=== PATIENT | male | born 1985 | race Caucasian/White ===

== ENCOUNTER 2018-12-02 08:17 | Inpatient (IN) | payer OTHER ==
[2018-11-25 13:46] VITALS: BMI 46.6
[2018-12-02] MEDS ORDERED: MIDAZOLAM HCL 2 MG/2 ML SINGLE DOSE VIAL ONE (08:32)
--- NOTE | 2018-12-02 09:22 | HP ---
Admitting History and Physical - Admission Chief Complaint: Morbid obesity History Source: Patient Limitations to Obtaining History: No Limitations - Past Medical History Gastrointestinal: Yes: GERD - Past Surgical History Additional Past Surgical History: Gastric Fundoplication - Smoking History Smoking history: Never smoked Have you smoked in the past 12 months: No - Alcohol/Substance Use Hx Alcohol Use: Yes (SOCIAL) Home Medications - Allergies Allergies/Adverse Reactions: Allergies Allergy/AdvReac Type Severity Reaction Status Date / Time No Known Allergies Allergy Verified 12/02/18 08:35 - Home Medications Home Medications: Ambulatory Orders NK [No Known Home Medication] 11/25/18 Family Disease History - Family Disease History Family History: Denies Review of Systems - Review of Systems Constitutional: denies: Chills, Fever HENT: reports: No Symptoms Neck: reports: No Symptoms Cardiovascular: reports: No Symptoms Respiratory: reports: No Symptoms Gastrointestinal: reports: No Symptoms Neurological: reports: No Symptoms Pain Intensity: 0 Physical Examination Vital Signs: Vital Signs Temperature 99.1 F 12/02/18 08:40 Pulse Rate 105 H 12/02/18 08:40 Respiratory Rate 16 12/02/18 08:40 Blood Pressure 147/82 12/02/18 08:40 O2 Sat by Pulse Oximetry (%) Constitutional: Yes: Calm HENT: Yes: WNL Neck: Yes: WNL Cardiovascular: Yes: WNL Respiratory: Yes: WNL Gastrointestinal: Yes: Soft, Abdomen, Obese. No: Tenderness Neurological: Yes: Alert, Oriented Problem List - Problems (1) Morbid obesity due to excess calories Code(s): E66.01 - MORBID (SEVERE) OBESITY DUE TO EXCESS CALORIES Assessment/Plan Laparoscopic possible open vertical sleeve gastrectomy, possible liver biopsy Discussed risks and benefits including increased risk due to prior fundoplication Explained that would avoid the fundoplication which may result in less weight loss due to inability to fully resect the fundus Also, explained increased risk of injury, increased chance of having to convert to an open surgery/exploratory laparotomy, and possibility of not being able to perform the procedure at all due to possible adhesions from prior gastric fundoplication The patient and his family understands and agrees
[2018-12-02] MEDS ORDERED: fentaNYL CITRATE 250 MCG/5 ML VIAL ONE ×2 (09:42→12:19)
[2018-12-02] MEDS ORDERED: SUCCINYLCHOLINE CHLORIDE 200 MG/10 ML VIAL ONE (09:42)
[2018-12-02] MEDS ORDERED: PROPOFOL 20 ML ONE (09:42)
[2018-12-02] MEDS ORDERED: ROCURONIUM BROMIDE 50 MG/5 ML VIAL ONE ×3 (09:51→10:50)
[2018-12-02] MEDS ORDERED: BUPIVACAINE HCL/PF 2.5 MG/ML - 30 ML VIAL IJ ONE (10:33)
[2018-12-02] MEDS ORDERED: DESFLURANE GAS 240 ML BOTTLE IH ONE (11:42)
[2018-12-02] MEDS ORDERED: NEOSTIGMINE METHYLSULFATE 0.5 MG/ML - 10 ML MDV ONE (12:27)
[2018-12-02] MEDS ORDERED: GLYCOPYRROLATE 0.2 MG/1 ML VIAL ONE ×2 (12:28)
[2018-12-02] MEDS ORDERED: BUPIVACAINE HCL/PF 0.25% (2.5MG/ML) 10 ML VIAL IJ ONE (12:30)
[2018-12-02] MEDS ORDERED: FAMOTIDINE 20 MG/50 ML IVPB 20 MG/50 ML MG IVPB ONE (12:39)
[2018-12-02] MEDS ORDERED: HYDROmorphone HCL CARPU-JECT 1 MG/1 ML DISP.SYRIN IVPB PRN (12:39)
[2018-12-02] MEDS ORDERED: METOCLOPRAMIDE HCL INJECTION 10 MG/2 ML VIAL IVPUSH SCH (12:45)
[2018-12-02] MEDS ORDERED: ACETAMINOPHEN 1000 MG/100 ML VIAL (NON FORMULARY) IVPB SCH (12:45)
--- NOTE | 2018-12-02 12:45 | OP ---
Operative Note - Note: Operative Date: 12/02/18 Pre-Operative Diagnosis: Morbid obesity Operation: Diagnostic laparoscopy. Extensive laparoscopic lysis of adhesions. Laparoscopic vertical sleeve gastrectomy. EGD Post-Operative Diagnosis: Other (morbid obesity) Surgeon: Fidencio Scott Market Development Executive: Stuart Gleason Anesthesia: General Specimens Removed: Greater curvature of stomach Estimated Blood Loss (mls): 30 Drains & Tubes with Location: 36 Fr Bougie Operative Report Dictated: Yes
[2018-12-02] MEDS ORDERED: PROMETHAZINE HCL 25 MG/1 ML VIAL IVPUSH PRN (12:53)
[2018-12-02] MEDS ORDERED: ONDANSETRON 4 MG/2 ML VIAL IVPUSH PRN (12:53)
[2018-12-02] MEDS ORDERED: oxyCODONE HCL 5 MG TABLET PO PRN (12:53)
[2018-12-02] MEDS ORDERED: FAMOTIDINE 20 MG PREMIXED IVPB IVPB ONE (13:10)
[2018-12-02 13:14] LABS: HEMATOCRIT 40.8 % (35.4-49); HEMOGLOBIN 13.6 GM/dl (11.7-16.9); MCH 31.4 pg (25.7-33.7); MCHC 33.3 g/dl (32.0-35.9); MEAN CELL VOLUME 94.3 fl (80-96); MEAN PLT VOLUME 8.3 fl (7.5-11.1); PLATELET COUNT 197 K/MM3 (134-434); RBC 4.33 M/mm3 (4.00-5.60); RDW 11.7 % (11.9-15.9); WHITE BLOOD COUNT 6.3 K/mm3 (4.0-10.8)
[2018-12-02 13:30] LABS: ALBUMIN 3.9 g/dl (3.4-5.0); ALK PHOS 65 U/L (45-117); ANION GAP 7 MMOL/L (8-16); BILIRUBIN,TOTAL 0.5 mg/dl (0.2-1); BLOOD UREA NITROGEN 13 mg/dl (7-18); CALCIUM 8.1 mg/dl (8.5-10); CHLORIDE 102 mmol/L (98-107); CO2 22 mmol/L (21-32); CREATININE 1.1 mg/dl (0.55-1.3); GLUCOSE,RANDOM 153 mg/dl (74-106); POTASSIUM 4.8 mmol/L (3.5-5.1); SGOT/AST 74 U/L (15-37); SGPT/ALT 100 U/L (13-61); SODIUM 131 mmol/L (136-145); TOT PROT 7.7 g/dl (6.4-8.2)
[2018-12-02] MEDS ORDERED: ONDANSETRON 4 MG/2 ML VIAL ONE (13:36)
--- NOTE | 2018-12-02 14:11 | SPEC ---
DATE OF OPERATION: 12/02/2018 SURGEON: Fidencio Scott MD BRIGHT CUTTER: Stuart Gleason MD PREOPERATIVE DIAGNOSIS: Morbid obesity. POSTOPERATIVE DIAGNOSES: Morbid obesity and dense intraabdominal adhesions. PROCEDURE: 1. Diagnostic laparoscopy. 2. Laparoscopic lysis of adhesions. 3. Laparoscopic vertical sleeve gastrectomy. SPECIMEN: Greater curvature of stomach. BLOOD LOSS: 30 mL. DRAINS: None. ANESTHESIA: GET. BOUGIE: Size 36-Ch[place]an. REASON FOR PROCEDURE: This is a 33-year-old gentleman who presents to the office for weight loss options. After describing different options, decided to proceed with laparoscopic possible open vertical sleeve gastrectomy. Please note that in addition in the office as well as in the holding area prior to the surgery it was discussed with the patient that it would be an increased risk of possible injury to intraabdominal organs, increased risk of leak and/or obstruction, or inability to perform sleeve gastrectomy due to prior gastric fundoplication. It was also explained that he may have less weight loss because of the inability to resect the fundus of the stomach to the fundoplication. He and his family did understand, and informed consent was obtained. RISKS AND BENEFITS: After describing the different options for weight loss management, the patient decided to proceed with a laparoscopic, possible open vertical sleeve gastrectomy. The patient was seen by the respective subspecialties and cleared for surgery. The risks and benefits of the procedure were explained. These included bleeding, infection, hernia, PA, DVT, PE, injury to surrounding structures including the liver, colon, bowel, spleen, esophagus, vessel injury, nerve injury, weight regain, gastric leak, staple line leak, sleeve leak, obstruction, vitamin deficiency, hair loss, and as some of the possible complications. The patient understood and signed informed consent. DESCRIPTION OF PROCEDURE: The patient was placed supine on the operating room table. The patient underwent general endotracheal intubation. The arms were brought out at 90 degrees and secured. A foot board was placed, and the legs were secured laterally with padding. The abdomen was prepped and draped in the usual sterile fashion. A timeout was performed. An incision was made in the left upper quadrant, and a Veress needle inserted. Pneumoperitoneum was established. Subsequently, the Veress needle was removed, and a 5-mm trocar was placed under direct visualization with the laparoscope. The laparoscopic camera was inserted, and inspection of the abdominal cavity was performed. An incision was made in the supraumbilical region, and a 15-mm trocar placed under direct visualization. A 5-mm trocar was then placed in the right upper quadrant, and a 5-mm trocar placed below the left subcostal margin. A stab wound was made in the subxiphoid area, and a Maribel clamp inserted and removed to dilate the tract. A Balwinder liver retractor was inserted. The post was secured at the bedside by the nursing staff. The patient was placed in steep reverse Trendelenburg position. The Balwinder liver retractor was used to secure the liver towards the anterior abdominal wall. Dense intraabdominal adhesions were noted. There was omentum densely adhered to the intraabdominal wall as well as adhesions to the inferior aspect of the liver. These had to be carefully taken down using LigaSure. This was done until the stomach could be visualized. The pylorus was identified and 6 cm proximal to it, the lesser sac was entered using the Ligasure device. All lateral attachments to the greater curvature of the stomach including the short gastric vessels were ligated using the Ligasure device toward the area below the gastric fundoplication. Once this was done in its entirety, it was confirmed that all tubes within the nasal or oropharyngeal cavity including a temperature probe was removed by Anesthesia. The bougie was then inserted by Anesthesia. Transection of the stomach was then begun staying adjacent to the bougie but away from the angularis. Transection of the stomach was performed near the portion of the stomach where the lesser sac was entered. Two laparoscopic Endo- ELSI black loads were used at this location. Laparoscopic Endo-ELSI purple loads were then used for the remainder of the transection until the greater curvature of the stomach was transected up to the level of the fundoplication. This was done staying close to the endoscope which was also used as a bougie for better visualization. during the transection. The staple line was then inspected. Hemostasis was identified. A leak test was then performed. The stomach was clamped distally to the staple line. Irrigation solution was placed in the left upper quadrant, and air insufflated by Anesthesia into the sleeve. No leaks were identified, and no obstruction was identified. This was done throughout the entirety of the staple line. In addition, an upper endoscopy was performed. The endoscope was placed into the patients mouth and the entirety of the esophagus, GE junction, gastric pouch and staple line were inspected. No obstruction or leak was noted. The stomach was suctioned and the endoscope removed fully intact. At this point, the irrigation solution was suctioned, and again hemostasis noted. The 15-mm supraumbilical trocar was then removed, and the specimen removed from the site using a sponge stick connelly. The specimen was inspected, and a Veress needle inserted. The specimen insufflated adequately, and no leak was identified. The staple line was noted to be intact. A Elton Patricia device was then used to close the fascia with a 0 Vicryl suture at this site. Again, hemostasis was noted. The Balwinder liver retractor was then removed under direct visualization. Pneumoperitoneum was desufflated, and the fascial sutures were secured. Hemostasis was noted at all incision sites, and Marcaine was injected at all incision sites. All incision sites were closed using 4-0 Biosyn. Sterile dressings were applied. The patient tolerated the procedure well, and was transferred to the recovery room in stable condition. The patient was transferred to telemetry for further monitoring. . Clif [id number] MTDD
[2018-12-02] MEDS: SODIUM CHLORIDE 1,000 ML IV SCH (15:07)
[2018-12-02] MEDS: ONDANSETRON 4 MG/2 ML VIAL IVPUSH SCH ×3 (15:08→21:21)
[2018-12-02] MEDS: METOCLOPRAMIDE HCL INJECTION 10 MG/2 ML VIAL IVPUSH SCH (18:00)
[2018-12-02] MEDS: ACETAMINOPHEN 1000 MG/100 ML VIAL (NON FORMULARY) IVPB SCH (21:21)
[2018-12-02] MEDS: FAMOTIDINE 20 MG/50 ML IVPB 20 MG/50 ML MG IVPB SCH (21:21)
[2018-12-02] MEDS: ENOXAPARIN NA (PORCINE) 40 MG/0.4 ML DISP.SYRIN SQ SCH (21:22)
[2018-12-03] MEDS: ONDANSETRON 4 MG/2 ML VIAL IVPUSH SCH ×5 (00:28→16:15)
[2018-12-03] MEDS: METOCLOPRAMIDE HCL INJECTION 10 MG/2 ML VIAL IVPUSH SCH ×3 (00:28→12:33)
[2018-12-03] MEDS: ACETAMINOPHEN 1000 MG/100 ML VIAL (NON FORMULARY) IVPB SCH ×2 (02:04→08:28)
[2018-12-03 07:31] LABS: HEMATOCRIT 40.7 % (35.4-49); HEMOGLOBIN 13.6 GM/dl (11.7-16.9); MCH 31.4 pg (25.7-33.7); MCHC 33.5 g/dl (32.0-35.9); MEAN CELL VOLUME 93.8 fl (80-96); MEAN PLT VOLUME 8.7 fl (7.5-11.1); PLATELET COUNT 207 K/MM3 (134-434); RBC 4.34 M/mm3 (4.00-5.60); RDW 11.6 % (11.9-15.9); WHITE BLOOD COUNT 5.6 K/mm3 (4.0-10.8)
[2018-12-03 08:05] LABS: ALBUMIN 3.7 g/dl (3.4-5.0); ALK PHOS 61 U/L (45-117); ANION GAP 10 MMOL/L (8-16); BILIRUBIN,TOTAL 0.8 mg/dl (0.2-1); BLOOD UREA NITROGEN 10 mg/dl (7-18); CALCIUM 8.2 mg/dl (8.5-10); CHLORIDE 99 mmol/L (98-107); CO2 22 mmol/L (21-32); CREATININE 0.7 mg/dl (0.55-1.3); GLUCOSE,RANDOM 120 mg/dl (74-106); POTASSIUM 4.1 mmol/L (3.5-5.1); SGOT/AST 78 U/L (15-37); SGPT/ALT 100 U/L (13-61); SODIUM 131 mmol/L (136-145); TOT PROT 7.3 g/dl (6.4-8.2)
[2018-12-03] MEDS: FAMOTIDINE 20 MG/50 ML IVPB 20 MG/50 ML MG IVPB SCH (09:40)
[2018-12-03] MEDS: ENOXAPARIN NA (PORCINE) 40 MG/0.4 ML DISP.SYRIN SQ SCH (09:44)
--- NOTE | 2018-12-03 09:48 | PN ---
Progress Note (short form) - Note Progress Note: POD #1 - s/p laparoscopic gastric sleeve under GA. VSS. Pt. doing well, sitting up in chair comfortably. No complaints. No apparent anesthetic complications noted. Continue current care.
--- NOTE | 2018-12-03 11:08 | PN ---
Progress Note (short form) - Note Progress Note: POD 1 No nausea Pain controlled Vital Signs Period Temp Pulse Resp BP Sys/Vick Pulse Ox Last 24 Hr 97.9 F-99.1 F 65-88 16-22 118-159/68-95 95-98 Abd soft CBC,CMP WBC 5.6 K/mm3 (4.0-10.8) 12/03/18 06:30 RBC 4.34 M/mm3 (4.00-5.60) 12/03/18 06:30 Hgb 13.6 GM/dl (11.7-16.9) 12/03/18 06:30 Hct 40.7 % (35.4-49) 12/03/18 06:30 MCV 93.8 fl (80-96) 12/03/18 06:30 MCH 31.4 pg (25.7-33.7) 12/03/18 06:30 MCHC 33.5 g/dl (32.0-35.9) 12/03/18 06:30 RDW 11.6 % (11.9-15.9) L 12/03/18 06:30 Plt Count 207 K/MM3 (134-434) 12/03/18 06:30 MPV 8.7 fl (7.5-11.1) 12/03/18 06:30 Sodium 131 mmol/L (136-145) L 12/03/18 06:30 Potassium 4.1 mmol/L (3.5-5.1) 12/03/18 06:30 Chloride 99 mmol/L (98-107) 12/03/18 06:30 Carbon Dioxide 22 mmol/L (21-32) 12/03/18 06:30 Anion Gap 10 MMOL/L (8-16) 12/03/18 06:30 BUN 10 mg/dl (7-18) 12/03/18 06:30 Creatinine 0.7 mg/dl (0.55-1.3) 12/03/18 06:30 Creat Clearance w eGFR 130.69 (>60) 12/03/18 06:30 Random Glucose 120 mg/dl (74-106) H 12/03/18 06:30 Calcium 8.2 mg/dl (8.5-10) L 12/03/18 06:30 Total Bilirubin 0.8 mg/dl (0.2-1) 12/03/18 06:30 AST 78 U/L (15-37) H 12/03/18 06:30 ALT 100 U/L (13-61) H 12/03/18 06:30 Alkaline Phosphatase 61 U/L (45-117) 12/03/18 06:30 Total Protein 7.3 g/dl (6.4-8.2) 12/03/18 06:30 Albumin 3.7 g/dl (3.4-5.0) 12/03/18 06:30 UGI pending Clears and discharge pending UGI result Problem List - Problems (1) Morbid obesity due to excess calories Code(s): E66.01 - MORBID (SEVERE) OBESITY DUE TO EXCESS CALORIES
[2018-12-03] MEDS: SODIUM CHLORIDE 1,000 ML IV SCH (12:34)
[2018-12-03 14:31] VITALS: BP 122/71; PULSE 77; TEMP 98.5
--- NOTE | 2018-12-04 15:54 | PATH ---
Surgical Pathology Report Patient Name: LATRICE AKERS Med. Rec. #: [id number] /Age/Gender: 1985 (Age: 33) / M Account: [id number] Location: [facility] MED[facility] Taken: 12/02/2018 Received: 12/02/2018 Reported: 12/04/2018 Physicians: Fidencio Scott M.D. Specimen(s) Received GREATER CURVATURE STOMACH Clinical History Morbid obesity Final Diagnosis GREATER CURVATURE STOMACH, LAPAROSCOPIC VERTICAL SLEEVE GASTRECTOMY: SEGMENT OF STOMACH SHOWING MILD CHRONIC GASTRITIS. IMMUNOSTAINING IS NEGATIVE FOR H. PYLORI ORGANISMS. NEGATIVE FOR INTESTINAL METAPLASIA. Electronically Signed Eleanor Clarke M.D. Gross Description Received in formalin, labeled "greater curvature of stomach" is a portion of stomach measuring 16 cm in length and 5 cm in circumference. The serosal surface is smooth. No perigastric lymph nodes identified. The mucosa shows usual folds with no focal lesions. House Calls Nurse sections are submitted in one cassette. ROXANNA/12/03/2018 julieth/12/03/2018
== END 2018-12-03 17:17 | disposition home or self-care (01) | DRG 403 ==
LOC: FM/S 08:17
PROVIDERS: ADMIT Surgery; ATTEND Surgery
PROC: 0DNW4ZZ Release Peritoneum, Percutaneous Endoscopic Approach (ICD-10-PCS; 2018-12-02)
PROC: 0DB64Z3 Excision of Stomach, Percutaneous Endoscopic Approach, Vertical (ICD-10-PCS; principal; 2018-12-02 10:00)
DX: E66.01 Morbid (severe) obesity due to excess calories (principal); K21.9 Gastro-esophageal reflux disease without esophagitis; K66.0 Peritoneal adhesions (postprocedural) (postinfection); Z68.42 Body mass index [BMI] 45.0-49.9, adult
CPT/HCPCS: 36415; 74241-TC-FY; 80053; 85027; 88305-TC; 94760; J0131; J7030

== ENCOUNTER 2024-07-02 09:16 | Emergency (ER) | payer OTHER ==
[2024-07-02 09:23] VITALS: BP 133/79; PULSE 97; RESP 20; TEMP 98.8; BMI 39.9
[2024-07-02] MEDS ORDERED: IBUPROFEN 600 MG TABLET (FP) PO ONE (10:12)
[2024-07-02] MEDS: IBUPROFEN 600 MG TABLET (FP) PO ONE (10:18)
== END 2024-07-02 14:01 | disposition home or self-care (01) ==
LOC: JERFT 09:16
DX: M25.561 Pain in right knee (principal); M25.461 Effusion, right knee; V28.49XA Other motorcycle driver injured in noncollision transport accident in traffic accident, initial encounter; Y92.410 Unspecified street and highway as the place of occurrence of the external cause
CPT/HCPCS: 73562-TC-RT-FY; 99283-25

== ENCOUNTER 2024-08-22 22:10 | Emergency (ER) | payer OTHER ==
[2024-08-22 22:17] VITALS: BP 129/95; PULSE 90; RESP 18; TEMP 99; BMI 40.6
[2024-08-22 23:46] LABS: BASO % 0.6 % (0-2.0); EOS % 0.7 % (0-4.5); HEMATOCRIT 46.4 % (35.4-49); HEMOGLOBIN 15.4 GM/dL (11.7-16.9); LYMPH % 20.4 % (8-40); MCHC 33.1 g/dl (32.0-35.9); MEAN CELL VOLUME 93.6 fl (80-96); MEAN PLT VOLUME 7.8 fl (7.5-11.1); MONO % 6.6 % (3.8-10.2); NEUT % 71.7 % (42.8-82.8); PLATELET COUNT 294 10^3/uL (134-434); RBC 4.96 M/mm3 (4.00-5.60); RDW 12.9 % (11.9-15.9); WHITE BLOOD COUNT 11.9 K/mm3 (4.0-10.0)
[2024-08-23 00:17] LABS: POTASSIUM 4.7 mmol/L (3.5-5.1)
[2024-08-23 00:19] LABS: CALCIUM 8.9 mg/dL (8.5-10.1)
[2024-08-23 00:20] LABS: BLOOD UREA NITROGEN 22.9 mg/dL (7-18)
[2024-08-23 00:23] LABS: CREATININE 1.1 mg/dL (0.55-1.3)
[2024-08-23 00:25] LABS: BILIRUBIN,TOTAL 0.7 mg/dL (0.2-1); TOT PROT 8.8 g/dl (6.4-8.2)
== END 2024-08-23 05:51 | disposition home or self-care (01) ==
LOC: JER 22:10
DX: L03.316 Cellulitis of umbilicus (principal)
CPT/HCPCS: 36415; 74177-TC; 80053; 85025; 99285-25; Q9967